=== PATIENT | female | born 1950 | race Two or more races ===

== ENCOUNTER 2016-07-28 19:55 | Emergency (ER) | payer OTHER ==
[~2016-07-28] VITALS: Ht 160 cm; Wt 83.9 kg
[2016-07-28] MEDS ORDERED: IBUPROFEN 600 MG TABLET PO ONE ×2 (21:30→21:32)
[2016-07-28 21:42] VITALS: BP 164/81
== END 2016-07-28 21:43 | disposition home or self-care (01) ==
LOC: ER 19:59
DX: M25.561 Pain in right knee (principal)
CPT/HCPCS: 73564-TC; A4606; Z7610

== ENCOUNTER 2018-01-21 18:40 | Emergency (ER) | payer OTHER ==
[~2018-01-21] VITALS: Ht 160 cm; Wt 83.0 kg
[2018-01-21 19:27] VITALS: BP 133/82
[2018-01-21] MEDS ORDERED: HYDROCODONE/APAP 5/325MG 1 EACH TABLET ONE (19:44)
[2018-01-21] MEDS ORDERED: ONDANSETRON 4 MG TAB.RAPDIS ONE (19:45)
[2018-01-21] MEDS ORDERED: ONDANSETRON 4 MG TAB.RAPDIS PO ONE (20:00)
[2018-01-21] MEDS ORDERED: HYDROCODONE/APAP 5/325MG 1 EACH TABLET PO ONE (20:00)
== END 2018-01-21 21:50 | disposition home or self-care (01) ==
LOC: ER 18:43
DX: S52.501A Unspecified fracture of the lower end of right radius, initial encounter for closed fracture (principal); W18.2XXA Fall in (into) shower or empty bathtub, initial encounter; Y93.E1 Activity, personal bathing and showering; Y92.009 Unspecified place in unspecified non-institutional (private) residence as the place of occurrence of the external cause; Y99.8 Other external cause status
CPT/HCPCS: 29125; 73090; 73110; 99284; A4606; Q0162; Z7610